=== PATIENT | male | born 1985 | race Caucasian/White ===

== ENCOUNTER 2020-02-12 21:20 | Observation (INO) | payer MEDICARE, MEDICAID, SELFPAY ==
[2020-02-12 21:21] VITALS: BP 118/75; PULSE 54; RESP 18; TEMP 36.4; O2SAT 98; BMI 21.2
[2020-02-12 21:32] VITALS: BP 150/94; PULSE 51; RESP 12; O2SAT 99
--- NOTE | 2020-02-12 21:37 | PC.NURSE ---
patient ambulated to bathroom with clean catch packaging and clean catch education provided to patient.
--- NOTE | 2020-02-12 21:47 | ED_ITS ---
Documented by User: BISI Joshi 02/13/20 00:09 HPI - Abdominal Pain General: Chief Complaint: Abdominal Pain Stated Complaint: abd pain Time Seen by Provider: 02/12/20 21:32 History of Present Illness: HPI narrative: Patient is a 34-year-old male comes to the ED with abdominal pain. Patient says this morning he woke up with right upper quadrant abdominal pain that radiates to the middle of his back. Patient says he is never had this kind of pain before. He currently rates pain a 5 out of 10. Patient says he was unable to keep any food or liquids down today and he vomited multiple times. Patient did say last night for dinner patient had some fried foods and brats. He had no pain or discomfort during the night. Associated Symptoms: Reports nausea and vomiting; Denies chills, constipation, diarrhea, dysuria, fever(s), hematochezia and hematuria Review of Systems Const: Denies: fever(s), chills or fatigue Eyes: Denies: change in vision or eye discomfort ENMT: Denies: throat pain, odynophagia, nasal discharge or nasal congestion Card: Denies: chest pain, palpitations, edema, swelling of feet/ankles, dyspnea on exertion or orthopnea Resp: Denies: dyspnea, productive cough or non-productive cough GI: Reports: abdominal pain (RUQ with radiation to middle of back), nausea and vomiting; Denies: diarrhea, constipation or hematochezia : Denies: flank pain, difficulty urinating, dysuria or hematuria Musc: Denies: neck pain, back pain or extremity swelling Skin/Breast: Denies: rash or new lesions Neuro: Denies: headache(s), numbness in extremities or weakness in extremities PFS ED PFSH: Social History Smoking and tobacco status: current every day smoker Physical Exam Const: COMMON NORMALS: patient oriented x3 and alert GENERAL APPEARANCE: cooperative; not comfortable (Patient appears uncomfortable and in some pain.) HENMT: COMMON NORMALS: normocephalic HEAD & SCALP: normocephalic MOUTH: Normal oral and palatal mucosa present THROAT: posterior oropharynx normal and uvula midline Eye: COMMON NORMALS: Equal, round and reactive pupils present PUPIL: Yes Equal, round and reactive pupils present Neck/C-Spine: COMMON NORMALS: supple GENERAL: Yes normal visual inspection Resp: COMMON NORMALS: normal respiratory effort, No retractions, No use of accessory muscles and clear to auscultation bilaterally AUSCULTATION: clear to auscultation bilaterally Cardio: COMMON NORMALS: regular rate, regular rhythm, S1 normal heart sound present, S2 normal heart sound present, No gallops present (Cardio), No clicks present (Cardio), No murmurs present (Cardio) and Peripheral pulses 2+ throughout RATE: regular rate RHYTHM: regular rhythm HEART SOUNDS: S1 normal heart sound present and S2 normal heart sound present PERIPHERAL PULSES: Peripheral pulses 2+ throughout GI: COMMON NORMALS: Normal to inspection, nondistended, normoactive bowel sounds present, Soft to palpation and no masses PALPATION: Yes Soft to palpation and Yes Tenderness to palpation present (GI) Details: RUQ (moderate tenderness with Positive staton's sign) : COMMON NORMALS: Yes no CVA tenderness BLADDER/KIDNEY EXAM: Yes no CVA tenderness Back/Pelvis: COMMON NORMALS: no CVA tenderness Extremity: COMMON NORMALS: normal to inspection and no pedal edema Neuro: COMMON NORMALS: patient oriented x3 SENSORIUM/ORIENTATION: Yes alert GAIT: Yes Normal gait present Skin: COMMON NORMALS: no rashes or lesions noted GENERAL SKIN EXAM: no rashes or lesions noted and dry skin Course Vital Signs: Vital signs: Vital Signs Temperature 98.2 F 02/13/20 01:39 Pulse Rate 50 L 02/13/20 01:39 Respiratory Rate 17 02/13/20 01:39 Blood Pressure 149/82 02/13/20 01:39 Pulse Oximetry 98 02/13/20 01:39 MDM - Abdominal Pain MDM Narrative: Medical decision making narrative: Patient is a 34-year-old male comes to the ED with right upper quadrant pain that radiates to his back. Positive Staton sign upon physical exam. Patient's white blood cell count is 11.2, ultrasound of gallbladder showed impaction of gallstone in gallbladder neck, gallbladder wall thickening. I discussed patient's case with Dr. Hendricks and he will be taking over patient's care to speak with general surgeon and to get patient admitted. Lab Data: Attestation: I reviewed the patient's lab results. Labs: Lab Results 02/12/20 02/12/20 02/12/20 Range/Units 21:40 21:45 21:45 WBC 11.2 H (4.0-10.0) 10^3/ uL RBC 4.68 (4.1-5.3) 10^6/u L Hgb 14.6 (11.7-16.6) g/dL Hct 44.1 (42.0-52.0) % MCV 94.2 H (80-94) fL MCH 31.2 (28.0-34.0) pg MCHC 33.1 (30.0-36.0) g/dL RDW 12.9 (12.1-15.1) % Plt Count 287 (130-400) 10^3/c mm MPV 9.5 (7.4-10.4) fL Neut % (Auto) 73.8 % Lymph % (Auto) 17.5 % [place] % (Auto) 7.7 % Eos % (Auto) 0.2 % Baso % (Auto) 0.4 % Neut # (Auto) 8.2 H (1.8-7.7) 10^3/u L Lymph # (Auto) 2.0 (0.8-4.8) 10^3/u L [place] # (Auto) 0.9 (0.2-0.9) 10^3/u L Eos # (Auto) 0.0 (0.0-0.8) 10^3/u L Baso # (Auto) 0.1 (0.0-0.1) 10^3/u L Nucleated RBC % (a uto) 0 % Nucleated RBCs # 0.0 /100WBC Sodium 140 (136-145) mmol/L Potassium 4.1 (3.5-5.1) mmol/L Chloride 103 (98-107) mmol/L Carbon Dioxide 25 (22-29) mmol/L Anion Gap 16.1 (5-19) BUN 9 (6-20) mg/dL Creatinine 0.6 L (0.7-1.2) mg/dL GFR Calculation 152.4 H (90-130) mL/min Glucose 149 H (65-115) mg/dL Calculated Osmolal ity 289 (285-295) mOsm/k g Calcium 9.6 (8.5-10.5) mg/dL Total Bilirubin 0.3 (0.15-1.2) mg/dL AST 23 (0-40) U/L ALT 17 (0-41) U/L Alkaline Phosphata se 103 (40-130) IU/L Total Protein 7.5 (6.6-8.7) g/dL Albumin 4.5 (3.5-5.2) g/dL Globulin 3.0 (1.3-4.6) g/dL Lipase 29 (13-60) U/L Urine Color Dark yellow (Yellow) Urine Appearance Clear (CLEAR) Urine pH 6 (5-7) Ur Specific Gravit y 1.025 (1.005-1.030) Urine Protein Neg (Negative) Urine Glucose (UA) Norm (Normal) Urine Ketones 1+ H (Negative) Urine Blood Neg (Negative) Urine Nitrate Negative (Negative) Urine Bilirubin Neg (NEGATIVE) Urine Urobilinogen 1 H (Negative) mg/dL Ur Leukocyte Amanda ase Negative (Negative) Imaging Data ^: US: Attestation: I personally reviewed and interpreted this imaging study as follows: Radiologist's impression: [address] [address] Ultrasound Report Signed Patient: Rell Milian Unit #: [id number] : 1985 Age/Sex: 34 / M ADM Date: 01/24 05/15 Loc: ER Room/Bed: Attending Dr: Ordering Provider/Ordering MD: Kwesi Pillai Date of Service: 02/12/20 Procedure(s): US gall bladder [id number] Accession Number(s): [id number] Report Number: [id number] PROCEDURE INFORMATION: Exam: US Abdomen Limited, Right Upper Quadrant Exam date and time: 02/12/2020 11:07 PM Age: 34 years old Clinical indication: Abdominal pain; Acute; Additional info: Ruq pain, n/v TECHNIQUE: Imaging protocol: Real-time ultrasound of the abdomen with image documentation. Examination was focused on the right upper quadrant. COMPARISON: No relevant prior studies available. FINDINGS: Liver: Slightly increased fat in the fissure for the ligamentum teres in the left lobe of the liver. No liver mass. Normal blood flow in the main portal vein. Gallbladder: Shadowing stone in the gallbladder neck measuring about 9.3 x 15.5 mm. Prominent thickening of the gallbladder wall around the gallstone. Thickness of the anterior wall of the midportion of the gallbladder 3.6 mm. Positive sonographic Staton's sign. Common bile duct: CBD 4.9 mm. Pancreas: Normal size and echogenicity of the pancreatic neck and adjacent head and body and no ductal dilatation in these areas. Obscuration of the rest of the pancreas by bowel. Right kidney: Right kidney approximately 10.8 cm long (my measurement) by 5.4 x 6.2 cm with no hydronephrosis or apparent mass or shadowing stone. Aorta: Mid abdominal aorta 1.5 cm deep. Intraperitoneal space: No free fluid around the gallbladder or in Morison's pouch. US/ gall bladder [id number] IMPRESSION: 1. Concern for impaction of the gallstone in the gallbladder neck, especially considering the gallbladder wall thickening and the positive sonographic Staton's sign. No biliary ductal dilatation. 2. No apparent disease of the other visualized structures. Dictated By: Jacklyn Jimenez MD Signed By: Jacklyn Jimenez MD Signed Date/Time: 02/12/202332 DD/ 31 Discharge Plan Discharge Patient Disposition: Placed in Observation Admit Provider: Ben Benavidez Clinical Impression: Acute cholecystitis Condition: Stable Referrals: Kusum Palafox, [employer] [Primary Care Provider] - Discharge Date/Time: 02/13/20 01:25 Sign Out Sign Out Data: Patient Sign Out occurred on 02/13/20 at 00:13. Patient's care was discussed, and care was transferred from to Kandy Hendricks. Coding Level of Care Code ED Measurer for Chg Fwd Exam Comprehensive Documented by User: Kandy Hendricks 02/13/20 02:51 HPI - Abdominal Pain General: Chief Complaint: Abdominal Pain Stated Complaint: abd pain Time Seen by Provider: 02/12/20 21:32 PFSH ED PFSH: Social History Smoking and tobacco status: current every day smoker Course Vital Signs: Vital signs: Vital Signs Temperature 98.2 F 02/13/20 01:39 Pulse Rate 50 L 02/13/20 01:39 Respiratory Rate 17 02/13/20 01:39 Blood Pressure 149/82 02/13/20 01:39 Pulse Oximetry 98 02/13/20 01:39 MDM - Abdominal Pain MDM Narrative: Medical decision making narrative: Case inherited by me from BISI Joshi. I approve of his assessment and treatment plan. The patient has intractable pain going on all day with a positive ultrasound. His white count is slightly elevated with subjective fevers. Believe this is enough for cholecystitis. I have reviewed the case in full with Dr. Benavidez who is agreeable to admission for IV antibiotics, pain medication and fluids and he will make a determination on surgery versus released outpatient with follow-up. Lab Data: Labs: Lab Results 02/12/20 02/12/20 02/12/20 Range/Units 21:40 21:45 21:45 WBC 11.2 H (4.0-10.0) 10^3/ uL RBC 4.68 (4.1-5.3) 10^6/u L Hgb 14.6 (11.7-16.6) g/dL Hct 44.1 (42.0-52.0) % MCV 94.2 H (80-94) fL MCH 31.2 (28.0-34.0) pg MCHC 33.1 (30.0-36.0) g/dL RDW 12.9 (12.1-15.1) % Plt Count 287 (130-400) 10^3/c mm MPV 9.5 (7.4-10.4) fL Neut % (Auto) 73.8 % Lymph % (Auto) 17.5 % [place] % (Auto) 7.7 % Eos % (Auto) 0.2 % Baso % (Auto) 0.4 % Neut # (Auto) 8.2 H (1.8-7.7) 10^3/u L Lymph # (Auto) 2.0 (0.8-4.8) 10^3/u L [place] # (Auto) 0.9 (0.2-0.9) 10^3/u L Eos # (Auto) 0.0 (0.0-0.8) 10^3/u L Baso # (Auto) 0.1 (0.0-0.1) 10^3/u L Nucleated RBC % (a uto) 0 % Nucleated RBCs # 0.0 /100WBC Sodium 140 (136-145) mmol/L Potassium 4.1 (3.5-5.1) mmol/L Chloride 103 (98-107) mmol/L Carbon Dioxide 25 (22-29) mmol/L Anion Gap 16.1 (5-19) BUN 9 (6-20) mg/dL Creatinine 0.6 L (0.7-1.2) mg/dL GFR Calculation 152.4 H (90-130) mL/min Glucose 149 H (65-115) mg/dL Calculated Osmolal ity 289 (285-295) mOsm/k g Calcium 9.6 (8.5-10.5) mg/dL Total Bilirubin 0.3 (0.15-1.2) mg/dL AST 23 (0-40) U/L ALT 17 (0-41) U/L Alkaline Phosphata se 103 (40-130) IU/L Total Protein 7.5 (6.6-8.7) g/dL Albumin 4.5 (3.5-5.2) g/dL Globulin 3.0 (1.3-4.6) g/dL Lipase 29 (13-60) U/L Urine Color Dark yellow (Yellow) Urine Appearance Clear (CLEAR) Urine pH 6 (5-7) Ur Specific Gravit y 1.025 (1.005-1.030) Urine Protein Neg (Negative) Urine Glucose (UA) Norm (Normal) Urine Ketones 1+ H (Negative) Urine Blood Neg (Negative) Urine Nitrate Negative (Negative) Urine Bilirubin Neg (NEGATIVE) Urine Urobilinogen 1 H (Negative) mg/dL Ur Leukocyte Amanda ase Negative (Negative) Discharge Plan Discharge Patient Disposition: Placed in Observation Admit Provider: Ben Benavidez Clinical Impression: Acute cholecystitis Condition: Stable Referrals: Kusum Palafox, [employer] [Primary Care Provider] - Discharge Date/Time: 02/13/20 01:25 Sign Out Sign Out Data: Patient Sign Out occurred on 02/13/20 at 00:13. Patient's care was discussed, and care was transferred from to Kandy Hendricks. Coding Level of Care Code ED Measurer for Larisa Fwd Exam Comprehensive
[2020-02-12] MEDS: sodium chloride 0.9% 1,000 ML 999 ML IV (21:51)
[2020-02-12 21:58] LABS: Basophils # 0.1 10^3/uL (0.0-0.1); Basophils % 0.4 %; Eosinophils % 0.2 %; Hematocrit 44.1 % (42.0-52.0); Hemoglobin 14.6 g/dL (11.7-16.6); Lymphocytes % 17.5 %; Mean Corpuscular HGB Conc 33.1 g/dL (30.0-36.0); Mean Corpuscular Hemoglobin 31.2 pg (28.0-34.0); Mean Corpuscular Volume 94.2 fL (80-94); Mean Platelet Volume 9.5 fL (7.4-10.4); Monocytes # 0.9 10^3/uL (0.2-0.9); Monocytes % 7.7 %; Neutrophils # 8.2 10^3/uL (1.8-7.7); Neutrophils % 73.8 %; Nucleated Red Blood Cells % 0 %; Platelet Count 287 10^3/cmm (130-400); Red Blood Count 4.68 10^6/uL (4.1-5.3); Red Cell Distribution Width 12.9 % (12.1-15.1); White Blood Count 11.2 10^3/uL (4.0-10.0)
[2020-02-12 22:03] LABS: Add Urine Microscopic? NO
[2020-02-12 22:06] LABS: Bilirubin Urine Neg (NEGATIVE); Blood Urine Neg (Negative); Glucose Urine UA Norm (Normal); Ketones Urine 1+ (Negative); Leukocyte Esterase Urine Negative (Negative); Nitrate Urine Negative (Negative); Protein Urine Neg (Negative); Specific Gravity, Urine 1.025 (1.005-1.030); Urine Appearance Clear (CLEAR); Urine Color Dark Yellow (Yellow); Urobilinogen Urine 1 mg/dL (Negative); pH Urine 6 (5-7)
[2020-02-12 22:18] LABS: Alanine Aminotransferase 17 U/L (0-41); Albumin Level 4.5 g/dL (3.5-5.2); Alkaline Phosphatase 103 IU/L (40-130); Anion Gap 16.1 (5-19); Aspartate Amino Transferase 23 U/L (0-40); Blood Urea Nitrogen 9 mg/dL (6-20); Calcium 9.6 mg/dL (8.5-10.5); Carbon Dioxide 25 mmol/L (22-29); Chloride 103 mmol/L (98-107); Glomerular Filtration Rate 152.4 mL/min (90-130); Glucose 149 mg/dL (65-115); Lipase 29 U/L (13-60); Osmolality Calculated 289 mOsm/kg (285-295); Potassium 4.1 mmol/L (3.5-5.1); Sodium 140 mmol/L (136-145); Total Bilirubin 0.3 mg/dL (0.15-1.2); Total Protein 7.5 g/dL (6.6-8.7)
--- NOTE | 2020-02-12 22:18 | USR_ITS ---
PROCEDURE INFORMATION: Exam: US Abdomen Limited, Right Upper Quadrant Exam date and time: 02/12/2020 11:07 PM Age: 34 years old Clinical indication: Abdominal pain; Acute; Additional info: Ruq pain, n/v TECHNIQUE: Imaging protocol: Real-time ultrasound of the abdomen with image documentation. Examination was focused on the right upper quadrant. COMPARISON: No relevant prior studies available. FINDINGS: Liver: Slightly increased fat in the fissure for the ligamentum teres in the left lobe of the liver. No liver mass. Normal blood flow in the main portal vein. Gallbladder: Shadowing stone in the gallbladder neck measuring about 9.3 x 15.5 mm. Prominent thickening of the gallbladder wall around the gallstone. Thickness of the anterior wall of the midportion of the gallbladder 3.6 mm. Positive sonographic Staton's sign. Common bile duct: CBD 4.9 mm. Pancreas: Normal size and echogenicity of the pancreatic neck and adjacent head and body and no ductal dilatation in these areas. Obscuration of the rest of the pancreas by bowel. Right kidney: Right kidney approximately 10.8 cm long (my measurement) by 5.4 x 6.2 cm with no hydronephrosis or apparent mass or shadowing stone. Aorta: Mid abdominal aorta 1.5 cm deep. Intraperitoneal space: No free fluid around the gallbladder or in Morison's pouch. US/US gall bladder [id number] IMPRESSION: 1. Concern for impaction of the gallstone in the gallbladder neck, especially considering the gallbladder wall thickening and the positive sonographic Staton's sign. No biliary ductal dilatation. 2. No apparent disease of the other visualized structures.
[2020-02-12] MEDS: ondansetron 2 mg/ML SDV 2 mL 4 MG IVP (22:24)
[2020-02-12 22:25] VITALS: RESP 15; O2SAT 99
[2020-02-12] MEDS: morphine 4 mg/mL SDV 1 mL 2 MG IVP (22:25)
[2020-02-12 22:28] VITALS: BP 153/95; PULSE 61; RESP 14; O2SAT 99
[2020-02-12 23:03] VITALS: BP 145/86; PULSE 55; RESP 14; O2SAT 98
--- NOTE | 2020-02-12 23:04 | PC.NURSE ---
ultrasound in room
[2020-02-13] VITALS (19 sets, daily range): BP systolic 122–167; BP diastolic 61–103; PULSE 48–85; RESP 14–22; TEMP 36.4–37; O2SAT 95–100
[2020-02-13] MEDS: piperacillin-tazobactam 3.375 GM in sodium chloride 0.9% (plus) 50 ML IV ×4 (00:42→23:49)
[2020-02-13] MEDS: dextrose 5%-sod chloride 0.45% 1,000 ML 100 ML IV (01:12)
[2020-02-13] MEDS: morphine 4 mg/mL SDV 1 mL IVP ×2 (03:02→06:52)
[2020-02-13 05:08] LABS: Basophils % 0.3 %; Eosinophils % 0.2 %; Hematocrit 43.2 % (42.0-52.0); Hemoglobin 14.1 g/dL (11.7-16.6); Lymphocytes # 2.3 10^3/uL (0.8-4.8); Lymphocytes % 17.8 %; Mean Corpuscular HGB Conc 32.6 g/dL (30.0-36.0); Mean Corpuscular Hemoglobin 31.1 pg (28.0-34.0); Mean Corpuscular Volume 95.4 fL (80-94); Mean Platelet Volume 10.2 fL (7.4-10.4); Monocytes # 1.1 10^3/uL (0.2-0.9); Monocytes % 8.1 %; Neutrophils # 9.6 10^3/uL (1.8-7.7); Neutrophils % 73.1 %; Nucleated Red Blood Cells % 0 %; Platelet Count 251 10^3/cmm (130-400); Red Blood Count 4.53 10^6/uL (4.1-5.3); White Blood Count 13.2 10^3/uL (4.0-10.0)
[2020-02-13 05:25] LABS: Partial Thromboplastin Time 31.1 SECONDS (23.9-36.7)
[2020-02-13 05:35] LABS: Alanine Aminotransferase 16 U/L (0-41); Albumin Level 4.3 g/dL (3.5-5.2); Alkaline Phosphatase 90 IU/L (40-130); Anion Gap 15.9 (5-19); Aspartate Amino Transferase 20 U/L (0-40); Blood Urea Nitrogen 9 mg/dL (6-20); Calcium 9.2 mg/dL (8.5-10.5); Carbon Dioxide 23 mmol/L (22-29); Chloride 105 mmol/L (98-107); Creatinine Clr Calc Pharmacy 137.1009; Glomerular Filtration Rate 127.6 mL/min (90-130); Glucose 130 mg/dL (65-115); Osmolality Calculated 288 mOsm/kg (285-295); Potassium 3.9 mmol/L (3.5-5.1); Sodium 140 mmol/L (136-145); Total Bilirubin 0.4 mg/dL (0.15-1.2); Total Protein 6.3 g/dL (6.6-8.7)
--- NOTE | 2020-02-13 05:58 | P.HP_ITS ---
Providers/Chief Complaint Admitting Physician: Ben Benavidez MD Primary Care Provider: KIRA Solano Chief Complaint: abd pain History of Present Illness Chief Complaint: Am hurting History of present illness: Mr. Rell Milian is a pleasant 34 year old male presents with worsening abdominal pain located mostly at the right upper quad and referred to the back patient started to have this pain yesterday evening and as it got worse presented to the emergency department for further work-up, nothing seems to make it better or worse and he denies history of fatty dysp epsia or jaundice or fevers or chills. Patient was further work-up and was found to have acute calculus cholecystitis FINDINGS: Liver: Slightly increased fat in the fissure for the ligamentum teres in the left lobe of the liver. No liver mass. Normal blood flow in the main portal vein. Gallbladder: Shadowing stone in the gallbladder neck measuring about 9.3 x 15.5 mm. Prominent thickening of the gallbladder wall around the gallstone. Thickness of the anterior wall of the midportion of the gallbladder 3.6 mm. Positive sonographic Staton's sign. Common bile duct: CBD 4.9 mm. Pancreas: Normal size and echogenicity of the pancreatic neck and adjacent head and body and no ductal dilatation in these areas. Obscuration of the rest of the pancreas by bowel. Right kidney: Right kidney approximately 10.8 cm long (my measurement) by 5.4 x 6.2 cm with no hydronephrosis or apparent mass or shadowing stone. Aorta: Mid abdominal aorta 1.5 cm deep. Intraperitoneal space: No free fluid around the gallbladder or in Morison's pouch. US/US gall bladder [id number] IMPRESSION: 1. Concern for impaction of the gallstone in the gallbladder neck, especially considering the gallbladder wall thickening and the positive sonographic Staton's sign. No biliary ductal dilatation. 2. No apparent disease of the other visualized structures. General surgery was consulted for further evaluation potential management Review of Systems 2 General: Reports: 10 or more systems reviewed and unremarkable except in HPI and below Medications/Allergies Home Medications Medication Instructions Recorded Confirmed Last Taken Type No Known Home Medications 02/12/20 02/12/20 Unknown History Allergies Allergy/AdvReac Type Severity Reaction Status Date / Time No Known Allergies Allergy Verified 02/13/20 08:14 PFSH Acute PFSH: Social History Smoking and tobacco status: current every day smoker Vitals/I&O/Wt Last Vital Signs Temp 97.5 F L 02/13/20 04:00 Pulse 73 02/13/20 04:00 Resp 20 H 02/13/20 04:00 BP 122/68 02/13/20 04:00 Pulse Ox 97 02/13/20 04:00 02/12/20 02/12/20 02/13/20 14:59 22:59 06:59 Intake Total 1050 / 1050 Balance 1050 / 1050 Weight last 48 hrs Weight 140 lb Physical Exam Narrative: EXAM NARRATIVE: Patient is conscious alert oriented X3 BMI 21 Head and neck examination PERRLA no masses no cervical lymphadenopathy no jaundice Cardiac examination audible S1-S2 no murmurs no gallops no arrhythmias Chest is clear bilateral,abscence of Rhonchi or wheezes,no surgical emphysema Abdomen nontender except at the right upper quadrant nondistended soft no organomegaly guarding or rigidity/no signs of peritonitis Extremities no cyanosis no clubbing no edema Data : 02/13/20 02:54 02/13/20 02:54 A&P Assessment and plan (1) Acute cholecystitis: Plan of care; After thorough history physical examination and reviewing the chart ,I counseled the patient for laparoscopic cholecystectomy possible open, indications risks including but not limited injury to the common bile duct and other visc era.benefits and alternatives all discussed with the patient, and she did agree to proceed. All questions have been answered and all concerns have been addressed to patient's satisfaction. Rationale was carefully and clearly discussed with the patient.Appropriate informed consent have been reviewed and signed. IV antibiotics in the form of Zosyn 3.375 mg every 8 hours Pain control IV fluid resuscitation Status: Acute Attestations Medical Necessity Statement*: Observation status Time Spent in Patient Care: (>than 50% of time spent in counselling and/or direct pt care on unit) . Coding Level of Care Code Acute Robotics Technician for [facility] Fwkarthikeyan Diagnoses Acute cholecystitis K81.0
--- NOTE | 2020-02-13 06:25 | PC.NURSE ---
Shift Summary pt transferred self from ER stretcher to bed with no problems. pt c/o pain about 0200, relieved with IV pain meds. pt nervous about possible surgery. pt spoke with general surgeon this AM for surgery. pt wiped with chlorahexidine wipes at 0620 and changed into clean hospital gown. pt has been NPO. pt has removed all jewelry with the exception of nose stud which pt states he cannot remove. nose stud was taped down.
[2020-02-13] MEDS: lactated ringers 1,000 ML 125 ML IV (10:01)
--- NOTE | 2020-02-13 11:28 | PC.CHAP ---
Pastoral Care Encounter/Spiritual Assessment Type of Contact [] Declined real estate marketing coordinator visit [] Patient/Family/Request visit [] Outpatient visit [] Follow-up visit [] Physician referral [] Code/Alert [X] Routine visit [] Staff referral [] Actively dying [] Patient sleeping [] Family support [] [] Out of room [] Palliative care [] [] Receiving care in room [] Pre-surgical visit [] Trauma [] Long length of stay [] ICU visit [] Other: Relational/Emotional Strength [] Patient feels connected with others/family/visitors/staff [] Distress [] Loneliness/isolation [] Abandonment Spirituality of Patient [] Person of [place] [] Attends Caodaism of their [place] [] Believes in Prayer [] Reads Bible or Christian materials [] There are Spiritual issues to be addressed Stem Cleaning Machine Feeder Interventions [X] Prayer [] Active listening [X] Non-anxious presence [] Spiritual/emotional support [] Crisis/trauma care [] Spiritual counseling [] Bereavement support [] Provided bereavement packet [] Provided Bible/devotional materials [] Provided toy/stuffed animal, coloring book to patient or family member [] Provided Communion [] Anointing/[place] [] Salvation [X] Completed spiritual assessment [] Other: Impact on Illness or Injury [] Angry [] Fearful [] Anxious [] Often cries [] Exhaustion [] Unable to work [] Unable to attend mosque [] Unable to walk/stand [] Unable to read [] Unable to drive [] Unable to eat/drink [] Unable to sleep [] Unable to be with family [] Patient intubated [] Other: Summary: Pt has appendectomy around noon today. He lives with his father; uses Medicaid transport. Time spent with patient: 5 - 8 mins
[2020-02-13] MEDS: sodium chloride 0.9% 1,000 ML 30 ML IV (14:00)
--- NOTE | 2020-02-13 14:20 | ANES.PREANE2 ---
Pre-Anesthetic Assessment Pre-Anesthetic Assessment: Height/Weight: Height 1.73 m Weight 63.503 kg Temp Pulse Resp BP Pulse Ox 98.6 F 52 L 18 134/89 96 02/13/20 13:45 02/13/20 13:45 02/13/20 13:45 02/13/20 13:45 02/13/20 13:45 Preop Diagnosis: Acute calculus cholecystitis Proposed Procedure: Operation Date: 02/13/20 16:20 Proposed Procedures p Laparoscopic Cholecystectomy possible open(Not Applicable) - Ben Benavidez MD Last intake: Intake Last Liquid Date 02/12/20 Last Liquid Time 12:00 Last Solid Date 02/12/20 Last Solid Time 12:00 Social: Social History: Alcohol (occ) and Tobacco Exam: Pre-Anes Outpt Exam: alert, oriented x 3, clear to auscultation bilaterally and regular rate & rhythm Airway: Submandibular: WNL Cervical ROM: WNL MP: 2 Dentition: Other (teeth ok) History/ROS: No significant history except as noted Pulmonary: Pulmonary: None reported CV/HEM: CV/HEM: None reported : : None reported Hepatic: Hepatic: None reported GI: GI: GERD and None reported Metabolic: Metabolic: None reported Musc/skel: Musc/skel: None reported Neuropsych: Neuropsych: None reported Anesthetic Plan: ASA status: 2 Anesthesia: Anesthesia Evaluation and General Risk of > 500 ml blood loss (7ml/kg in children): No Meds/Allergies Current Medications: Current Medications Generic Name Dose Route Start Last Admin Trade Name Freq PRN Reason Stop Dose Admin Piperacillin Sod/T azobactam 50 mls @ 12.5 mls /hr 02/13/20 00:30 02/13/20 09:51 Sod 3.375 gm/ So dium Chloride IV 12.5 mls/hr Q8H MARION Administration Protocol Lactated Ringer's 1,000 mls @ 125 m ls/hr 02/13/20 08:15 02/13/20 10:01 Lactated Ringers IV 125 mls/hr .Q8H MARION Administration Sodium Chloride 1,000 mls @ 30 ml s/hr 02/13/20 13:30 02/13/20 14:00 Sodium Chloride 0.9% IV 02/14/20 13:29 30 mls/hr .Q24H MARION Administration Morphine Sulfate 4 mg 02/13/20 00:16 02/13/20 06:52 Morphine IVP 4 mg Q4H PRN Administration SEVERE PAIN PFSH Anesthesia PFSH: Social History Smoking and tobacco status: current every day smoker Data Anesthesia CBC & Chem 7: 02/13/20 02:54 02/13/20 02:54 Other Labs: Laboratory Results - last 48 hr 02/12/20 02/12/20 02/12/20 21:40 21:45 21:45 WBC 11.2 H RBC 4.68 Hgb 14.6 Hct 44.1 MCV 94.2 H MCH 31.2 MCHC 33.1 RDW 12.9 Plt Count 287 MPV 9.5 Neut % (Auto) 73.8 Lymph % (Auto) 17.5 [place] % (Auto) 7.7 Eos % (Auto) 0.2 Baso % (Auto) 0.4 Neut # (Auto) 8.2 H Lymph # (Auto) 2.0 [place] # (Auto) 0.9 Eos # (Auto) 0.0 Baso # (Auto) 0.1 Nucleated RBC % (auto) 0 Nucleated RBCs # 0.0 APTT Sodium 140 Potassium 4.1 Chloride 103 Carbon Dioxide 25 Anion Gap 16.1 BUN 9 Creatinine 0.6 L GFR Calculation 152.4 H Glucose 149 H Calculated Osmolality 289 Calcium 9.6 Total Bilirubin 0.3 AST 23 ALT 17 Alkaline Phosphatase 103 Total Protein 7.5 Albumin 4.5 Globulin 3.0 Lipase 29 Urine Color Dark yellow Urine Appearance Clear Urine pH 6 Ur Specific [place] 1.025 Urine Protein Neg Urine Glucose (UA) Norm Urine Ketones 1+ H Urine Blood Neg Urine Nitrate Negative Urine Bilirubin Neg Urine Urobilinogen 1 H Ur Leukocyte Esterase Negative 02/13/20 02/13/20 02/13/20 02:54 02:54 02:54 WBC 13.2 H RBC 4.53 Hgb 14.1 Hct 43.2 MCV 95.4 H MCH 31.1 MCHC 32.6 RDW 13.0 Plt Count 251 MPV 10.2 Neut % (Auto) 73.1 Lymph % (Auto) 17.8 [place] % (Auto) 8.1 Eos % (Auto) 0.2 Baso % (Auto) 0.3 Neut # (Auto) 9.6 H Lymph # (Auto) 2.3 [place] # (Auto) 1.1 H Eos # (Auto) 0.0 Baso # (Auto) 0.0 Nucleated RBC % (auto) 0 Nucleated RBCs # 0.0 APTT 31.1 Sodium 140 Potassium 3.9 Chloride 105 Carbon Dioxide 23 Anion Gap 15.9 BUN 9 Creatinine 0.7 GFR Calculation 127.6 Glucose 130 H Calculated Osmolality 288 Calcium 9.2 Total Bilirubin 0.4 AST 20 ALT 16 Alkaline Phosphatase 90 Total Protein 6.3 L Albumin 4.3 Globulin 2.0 Lipase Urine Color Urine Appearance Urine pH Ur Specific [place] Urine Protein Urine Glucose (UA) Urine Ketones Urine Blood Urine Nitrate Urine Bilirubin Urine Urobilinogen Ur Leukocyte Esterase Cardiac Studies: No Data to Display
--- NOTE | 2020-02-13 14:21 | SUR.PREOP ---
PT TO OPS PER CART PT UP TO BR VOICED, PT DENIES PAIN SIDE RAILS UP X 2 CALL LIGHT WITHIN REACH
[2020-02-13] MEDS: lidocaine 2% INJ 20 mL INJECTION (16:03)
--- NOTE | 2020-02-13 16:19 | P.OP_ITS ---
Operative Report Date of procedure: February 13, 2020 Pre-op Diagnosis: Acute calculus cholecystitis Post-op diagnosis: same Post-op Findings: Markedly distended gallbladder showing white bile aspirated 40 mL Acute calculus cholecystitis Procedure Done: Laparoscopic cholecystectomy Specimens removed/disposition: Gallbladder and contents Surgeon: Ben Benavidez [place]erry[place] Deckhand: Surgical evie Smith and Mell Circulating nurse Kalee Anesthesia: General (electrophysiology nurse practitioner Smart) Estimated blood loss (mL): 15 Complications: No immediate complication Condition: stable Disposition: observation Brief History: Mr. Rell Milian is a pleasant 34 year old male presents with worsening abdominal pain located mostly at the right upper quad and referred to the back patient started to have this pain yesterday evening and as it got worse presented to the emergency department for further work-up, nothing seems to make it better or worse and he denies history of fatty dyspepsia or jaundice or fevers or chills. Patient was further work-up and was found to have acute calculus cholecystitis Ultrasound finding: IMPRESSION: 1. Concern for impaction of the gallstone in the gallbladder neck, especially considering the gallbladder wall thickening and the positive sonographic Staton's sign. No biliary ductal dilatation. 2. No apparent disease of the other visualized structures. General surgery was consulted for further evaluation potential management Plan of care; After thorough history physical examination and reviewing the chart ,I counseled the patient for laparoscopic cholecystectomy possible open, indications risks including but not limited injury to the common bile duct and other viscera.michelle efits and alternatives all discussed with the patient, and she did agree to proceed. All questions have been answered and all concerns have been addressed to patient's satisfaction. Rationale was carefully and clearly discussed with the patient.Appropriate informed consent have been reviewed and signed. Procedure: Patient was identified in the holding area and taken back to the operative suite, placed in supine position intubated by anesthesia . Time-out was done verifying the patient's name/date of /planned procedure and destination after the procedure, all were in agreement. SCDs confirmed to be functioning, preoperative antibiotics administered per protocol, and beta fiona protocol was confirmed. Patient was appropriately secured to the table, footboard was applied to the OR table, before prep and drape anesthesia was asked to tilt the table back and forth to make sure that the patient is appropriately secured and she was. Prep and drape of the abdomen was done under the usual sterile technique, followed by that supraumbilical skin incision,skin incision was done by a 15 blade knife, and stay sutures were applied to the fascia and Sumner trocar technique was used to enter the abdominal without injuring any abdominal viscera, started by low flow gas insufflation followed by a high flow, started with a 10 mm laparoscope and under direct vision there was no evidence of any injuries, the scope then switched to a 30? ,10 millimeter scope and under direct visualization 5 millimeter trocar was inserted in the epigastric region followed by two 5 mm trocars were inserted in the right upper quadrant that was done after injection of local lidocaine 2% at all incision sites. Gallbladder showed acute calculus cholecystitis with extensive edema &with adhesions, gallbladder was markedly distended Patient was then positioned in the head up and tilted to the left, at that point I decided to aspirate the gallbladder to allow better grabbing and a 40 mL of light green bile were aspirated. Ratcheted forceps were introduced into the lateral most 5mm port and was applied unto the fundus of the gallbladder cephalad and using Bullet forceps the infundibulum of the gallbladder was retracted laterally. Using [place] forceps then L-hook cautery to dissect the peritoneum overlying the Calot's triangle which was then opened medially and laterally until the cystic duct and the cystic artery were skeletonized. Dissection was carried along the body of the gallbladder and after ensuring critical view of safety was identfied. Cystic duct and cystic artery where seen connected to the gallbladder. Clips were applied on the cystic duct towards the common bile duct 1 towards the gallbladder then divided is in sharp scissors, 2 clips were then applied onto the cystic artery and 1 towards the gallbladder and divided by sharp scissors. Additional traversing vessels were clipped Dissection was then carried along of the gallbladder from the gallbladder fossa using cautery as well as sharp dissection with heat energy. The gallbladder then was dissected out from the gallbladder fossa totally , cholecystectomy was then achieved and was placed in an Endo Catch bag and then retrieved from the Sumner trocar site under direct visualization using a 5 mm 30? scope through the epigastric trocar, specimen was then passed to the circulating nurse to go for permanent pathology,irrigation and hemostasis was done to the gallbladder fossa after hemostasis was secured, final survey laparoscopy was done that showed no injuries. Suction irrigation was obtained The supraumbilical fascial defect was then closed using interrupted Vicryl sutures using a fascial closure device ;Chris Davis under direct visua lization Gas was allowed to deflate,Trocars were then taken out under direct vision there was no evidence of bleeding Specimen was passed to the circulating nurse for permanent pathology. No drains were placed and the supraumbilical incision as well as all trocar sites were closed by by 4-0 Monocryl to approximate the skin edges of the supraumbilical incision, dressing was applied in the form of surgical glue and the patient patient got extubated and was taken to recovery area in a stable condition. Count of sponges, needles and instruments were completed at the end of the procedure I was present for the whole entire procedure.
--- NOTE | 2020-02-13 17:17 | SUR.PHASEI ---
1745 PT UP AND WALKED TO BED PT ALERT TALKATIVE , NOW C/O PAIN TO ABD HANDOFF AT BEDSIDE, PT GIVEN [employer] NURSE TO GET PT PAIN MED.
[2020-02-13] MEDS: HYDROcodone-acetaminophen 5-325 mg Tablet 1 TAB PO ×2 (17:18→23:49)
[2020-02-14] VITALS: BP 127/73; PULSE 84; RESP 20; TEMP 36.8; O2SAT 95
--- NOTE | 2020-02-14 02:16 | PC.NURSE ---
02/14/20 0217 Lab documentation coordinator Laura, reported to this nurse that this pt was refusing lab draws. This nurse went to the pt and educated pt that post op labs were important and declining lab work may delay discharge. PT is AAOx3 and stated back to nurse that he is aware his decision may delay discharge but wished to decline anyways.
[2020-02-14] MEDS: lactated ringers 1,000 ML 125 ML IV (02:59)
[2020-02-14 03:15] VITALS: RESP 14
[2020-02-14] MEDS: morphine 4 mg/mL SDV 1 mL IVP (03:15)
[2020-02-14 03:54] LABS: Basophils % 0.2 %; Hematocrit 42.3 % (42.0-52.0); Hemoglobin 14.1 g/dL (11.7-16.6); Lymphocytes % 15.5 %; Mean Corpuscular HGB Conc 33.3 g/dL (30.0-36.0); Mean Corpuscular Hemoglobin 31.6 pg (28.0-34.0); Mean Corpuscular Volume 94.8 fL (80-94); Mean Platelet Volume 9.7 fL (7.4-10.4); Monocytes # 1.2 10^3/uL (0.2-0.9); Monocytes % 8.9 %; Neutrophils # 9.8 10^3/uL (1.8-7.7); Nucleated Red Blood Cells % 0 %; Platelet Count 260 10^3/cmm (130-400); Red Blood Count 4.46 10^6/uL (4.1-5.3); Red Cell Distribution Width 12.4 % (12.1-15.1)
[2020-02-14 04:00] VITALS: BP 135/74; PULSE 60; RESP 18; TEMP 36.9; O2SAT 95
[2020-02-14 04:20] LABS: Alanine Aminotransferase 26 U/L (0-41); Albumin Level 4.1 g/dL (3.5-5.2); Alkaline Phosphatase 86 IU/L (40-130); Anion Gap 15.9 (5-19); Aspartate Amino Transferase 27 U/L (0-40); Blood Urea Nitrogen 7 mg/dL (6-20); Calcium 9.2 mg/dL (8.5-10.5); Carbon Dioxide 24 mmol/L (22-29); Chloride 102 mmol/L (98-107); Globulin 2.2 g/dL (1.3-4.6); Glomerular Filtration Rate 152.4 mL/min (90-130); Glucose 142 mg/dL (65-115); Osmolality Calculated 284 mOsm/kg (285-295); Potassium 3.9 mmol/L (3.5-5.1); Sodium 138 mmol/L (136-145); Total Bilirubin 0.5 mg/dL (0.15-1.2); Total Protein 6.3 g/dL (6.6-8.7)
--- NOTE | 2020-02-14 07:15 | PM.SDS ---
Short Stay Summary Providers Date of Admit/Discharge: 02/14/20 Attending Provider: Ben Benavidez MD Primary Care Provider: KIRA Solano Chief Complaint: abd pain HPI History of Present Illness Rell Milian is a 34 year old male presents to the emergency department with worsening pain and was found to have acute calculus cholecystitis. Patient was admitted on my service for observation status and undergone uneventful laparoscopic cholecystectomy. She overall did well and will plan to discharge home today, blood work overall is appropriate except for some leukocytosis yet the patient does not have any fevers nausea or vomiting. Review of Systems General: Reports: 10 or more systems reviewed and unremarkable except in HPI and below Home Meds/Allergies Home Medications and Allergies Allergies Allergy/AdvReac Type Severity Reaction Status Date / Time No Known Allergies Allergy Verified 02/14/20 07:16 PFSH Acute PFSH: Social History Smoking and tobacco status: current every day smoker Vitals/I&O/Wt Last Vital Signs Temp 98.4 F 02/14/20 04:00 Pulse 60 02/14/20 04:00 Resp 18 02/14/20 04:00 BP 135/74 02/14/20 04:00 Pulse Ox 95 02/14/20 04:00 02/13/20 02/14/20 02/14/20 22:59 06:59 14:59 Intake Total 1240 / 1290 600 / 1890 Output Total 25 / 25 1300 / 1325 Balance 1215 / 1265 -700 / 565 Weight last 48 hrs Weight 140 lb Physical Exam Narrative: EXAM NARRATIVE: Patient is conscious alert oriented X3 BMI 21 Head and neck examination PERRLA no masses no cervical lymphadenopathy no jaundice Cardiac examination audible S1-S2 no murmurs no gallops no arrhythmias Chest is clear bilateral,abscence of Rhonchi or wheezes,no surgical emphysema Abdomen nontender step mildly at the incision sites nondistended soft no organomegaly guarding or rigidity/no signs of peritonitis Incisions are clean dry and intact Extremities no cyanosis no clubbing no edema Hospital Course Discharge Summary: 34 years old gentleman undergone uneventful laparoscopic cholecystectomy for acute calculus cholecystitis, patient's hospital course was appropriate continue to have stable vital signs and tolerating well p.o. intake with good urine output, will plan to discharge home today. SSS Data Data Completed and Pending: Completed Studies During Hospitalization Category Date Time Status US gall bladder 7 [id number] Urgent Ultrasound 02/12/20 22:18 Completed Pending at discharge Category Date Time Status ES surgery / GI i mages Routine Exams 02/13/20 14:43 Taken Pathology: Surgic al [PTH] Routine Pth 02/13/20 16:08 Ordered Diagnoses at Discharge Discharge Diagnosis (1) Acute cholecystitis: Status: Acute Problem details: Plan to discharge home today on oral antibiotics and p.o. pain medication Discharge Plan Discharge Patient Disposition: Home, Self-Care Condition: Stable Prescriptions: New Cherry Log 5-325 mg tablet 1 tab PO Q6H PRN (Reason: pain) Qty: 28 RF: 0 Augmentin 875-125 mg tablet 1 tab PO BID Qty: 10 RF: 0 Discharge Orders: Discharge Order (Routine); Ordered 02/14/20 Ordered By: Ben Benavidez Referrals: Ben Benavidez MD [Physician] - (Return to surgery office in 10 days) Kusum Palafox, CANAL EQUIPMENT MECHANIC-C [Primary Care Provider] - Discharge Diet: Advance as tolerated Activity Restrictions/Additional Instructions: 1. Patient can shower after 48 hours from surgery 2. Remove Dermabond 7 to 10 days after surgery, if there is a secondary dressing can take down after 48 hours. 3. Up and walking as tolerated 4. Do lift more than 5 pounds first 2 weeks after surgery and not more than 25 pounds 6 to 8 weeks after surgery. 5. Do not operate heavy machinery or drive while using pain medications. 6.Contact the office or return to the ER for worsening nausea vomiting fevers or chills, or noticing any redness around incision sites or discharge. 7. Avoid constipation Attestations Medical Necessity Statement*: Observation status Time Spent in Patient Care*: less than 30 min Quality Metrics Clinical Quality Measures: During this hospital stay, did patient experience: None Coding Level of Care Code Acute Sheet Heater for Murphyg Fwd Diagnoses Acute cholecystitis K81.0
[2020-02-14] MEDS: piperacillin-tazobactam 3.375 GM in sodium chloride 0.9% (plus) 50 ML IV (07:59)
[2020-02-14 08:00] VITALS: BP 124/76; PULSE 70; RESP 18; TEMP 36.9; O2SAT 95
[2020-02-14] MEDS: HYDROcodone-acetaminophen 5-325 mg Tablet 1 TAB PO (08:00)
[2020-02-14 08:04] VITALS: BP 135/74; PULSE 60; RESP 18; TEMP 36.9; O2SAT 95
--- NOTE | 2020-02-14 10:54 | PC.CHAP ---
Pastoral Care Encounter/Spiritual Assessment Type of Contact [] Declined multimedia specialist visit [] Patient/Family/Request visit [] Outpatient visit [X] Follow-up visit [] Physician referral [] Code/Alert [] Routine visit [] Staff referral [] Actively dying [] Patient sleeping [] Family support [] [] Out of room [] Palliative care [] [] Receiving care in room [] Pre-surgical visit [] Trauma [] Long length of stay [] ICU visit [] Other: Relational/Emotional Strength [] Patient feels connected with others/family/visitors/staff [] Distress [] Loneliness/isolation [] Abandonment Spirituality of Patient [] Person of [place] [] Attends Restoration of their [place] [X] Believes in Prayer [] Reads Bible or Gnosticist materials [] There are Spiritual issues to be addressed Verification Lead Interventions [X] Prayer [] Active listening [X] Non-anxious presence [] Spiritual/emotional support [] Crisis/trauma care [] Spiritual counseling [] Bereavement support [] Provided bereavement packet [] Provided Bible/devotional materials [] Provided toy/stuffed animal, coloring book to patient or family member [] Provided Communion [] Anointing/[place] [] Salvation [] Completed spiritual assessment [] Other: Impact on Illness or Injury [] Angry [] Fearful [] Anxious [] Often cries [] Exhaustion [] Unable to work [] Unable to attend hinduism [] Unable to walk/stand [] Unable to read [] Unable to drive [] Unable to eat/drink [] Unable to sleep [] Unable to be with family [] Patient intubated [] Other: Summary: Pt had been nervous about upcoming surgery when i visited him yesterday. Today, he was preparing to be discharged. [facility] for his coming through a successful surgery and continued healing. Time spent with patient: 5 mins
[2020-02-14 11:25] VITALS: BP 135/74; PULSE 60; RESP 18; TEMP 36.9; O2SAT 95
== END 2020-02-14 11:20 | disposition home or self-care (01) ==
LOC: ER 02-13 00:15 → MEDSURG 02-13 07:35
PROVIDERS: Emergency Medicine; Physician Assistant; Admitting Provider Surgery; PCP Nurse Practitioner; Visit Provider Surgery
PROC: 0FT44ZZ Resection of Gallbladder, Percutaneous Endoscopic Approach (ICD-10-PCS; CPT 47562; principal; 2020-02-13 16:00)
DX: K80.10 Calculus of gallbladder with chronic cholecystitis without obstruction (principal); F17.210 Nicotine dependence, cigarettes, uncomplicated
CPT/HCPCS: 47562; 12345; 36415; 76705; 80053; 81003; 83690; 85025; 85730; 88304; 96365; 96368; 96375; 96376; 99283; 99285; G0378; J0131; J0690; J1100; J2001; J2270; J2405; J2543; J2704; J3010; J3490; J7030; J7799

== ENCOUNTER 2022-06-12 04:30 | Emergency (ER) | payer MEDICARE, MEDICAID, SELFPAY ==
[2022-06-12 04:31] VITALS: BP 142/83; PULSE 72; RESP 16; O2SAT 99; BMI 22.8
--- NOTE | 2022-06-12 04:34 | XRR_ITS ---
PROCEDURE INFORMATION: Exam: XR Left Knee Exam date and time: 06/12/2022 4:35 AM Age: 36 years old Clinical indication: Injury or trauma; Fall; Blunt trauma; Patient HX: Patient fell onto left knee getting out of bed this a. M. C/O pain with difficulty bearing weight. TECHNIQUE: Imaging protocol: Radiologic exam of the Left knee. Views: 3 views. COMPARISON: No relevant prior studies available. FINDINGS: Bones/joints: No acute fracture or dislocation. Soft tissues: There is pretibial soft tissue edema. XR/XR knee LT 3V* [id number] IMPRESSION: 1. No acute fracture or dislocation. 2. There is pretibial soft tissue edema.
--- NOTE | 2022-06-12 04:35 | ED_ITS ---
HPI - Extremity Injury (Lower) General: Chief Complaint: Extremity Injury, Lower Stated Complaint: Knee Pain Time Seen by Provider: 06/12/22 04:31 Source: patient Mode of arrival: ambulatory Limitations: no limitations History of Present Illness: 36-year-old male he states that he had gotten out of bed and standing and twisted and felt a pop in his knee and then fell. He states has not been able to bear weight and has had pain and swelling in the knee this happened roughly 30 minutes ago he denies any other injuries denies any radiation of his pain rates his pain a 4 out of 10 currently it is improved with rest. Denies hitting his head when he fell. Review of Systems Const: Denies: fever(s), chills, body aches or change in appetite Eyes: Denies: blurry vision or eye discomfort ENMT: Denies: throat pain or dental pain Card: Denies: chest pain Resp: Denies: dyspnea GI: Denies: abdominal pain, nausea, vomiting or diarrhea : Denies: dysuria Musc: Reports: extremity pain Skin/Breast: Denies: rash Neuro: Denies: headache(s) Psych: Denies: depression Eben/Lymph: Denies: easy bruising All/Imm: Denies: urticaria PFSH ED PFSH: Medical History (Updated 06/12/22 @ 04:46 by Angel Arizmendi MD) No pertinent past medical history Family History Denies family history of Anesthesia complication Bleeding disorder Social History Smoking and tobacco status: current every day smoker Alcohol intake: never Household members: family Current occupational status: disabled History of recent travel: No Physical Exam Const: COMMON NORMALS: no acute distress, patient oriented x3 and healthy appearing HENMT: COMMON NORMALS: normocephalic and atraumatic HEAD & SCALP: normocephalic and atraumatic Eye: COMMON NORMALS: conjunctivae normal CONJUNCTIVA: Yes conjunctivae normal Neck/C-Spine: COMMON NORMALS: full ROM and supple Chest: COMMONS NORMALS: normal inspection of the chest Resp: COMMON NORMALS: normal respiratory effort Cardio: COMMON NORMALS: regular rate, regular rhythm and No murmurs present (Cardio) RATE: regular rate RHYTHM: regular rhythm GI: INSPECTION: Yes normal to inspection Extremity: NARRATIVE EXTREMITY EXAM: Swelling noted over left knee with some tenderness to touch no warmth to touch distal pulses intact Neuro: COMMON NORMALS: patient oriented x3, moves all extremities and no focal motor deficits Psych: COMMON NORMALS: mental status grossly normal, Normal thought process present and cooperative THOUGHT PROCESS: Normal thought process present Skin: COMMON NORMALS: no rashes or lesions noted and no wounds GENERAL SKIN EXAM: no rashes or lesions noted Course Vital Signs: Vital signs: Vital Signs Pulse Rate 84 06/12/22 04:42 Respiratory Rate 18 06/12/22 04:42 Blood Pressure 142/83 06/12/22 04:42 Pulse Oximetry 98 06/12/22 04:42 Oxygen Delivery Me thod 06/12/22 04:31 MDM - Extremity Injury (Lower) Medical Decision Making Patient presents with a knee sprain he has no signs of fracture patient placed in a knee immobilizer and given crutches he is to follow-up orthopedics he is to be nonweightbearing. Discharge Plan Discharge Patient Disposition: Home Clinical Impression: Left knee sprain Qualifiers: Encounter type: initial encounter Involved ligament of knee: unspecified ligament Qualified Code(s): S83.92XA - Sprain of unspecified site of left knee, initial encounter Condition: Stable Prescriptions: New Naprosyn 500 mg tablet 500 mg PO BID PRN (Reason: pain) Qty: 20 0RF No Action Hudson 5-325 mg tablet 1 tab PO Q6H PRN (Reason: pain) Qty: 28 0RF Augmentin 875-125 mg tablet 1 tab PO BID Qty: 10 0RF Discharge Orders: Discharge ED (Routine); Ordered 06/12/22 Ordered By: Angel Arizmendi Referrals: Kusum Palafox, COMMUNITY HEALTH COORDINATOR-C [Primary Care Provider] - Simone Pillai DO [Physician] - 1-3 days Discharge Diet: Advance as tolerated Discharge Activity: Resume usual activity Patient Instructions: Knee Sprain (ED) Coding Level of Care Code ED Supervisor Cigarette Making Department for [place]isa Fwd Exam Comprehensive
[2022-06-12] MEDS: HYDROcodone-acetaminophen 5-325 mg Tablet 1 TAB PO (04:41)
[2022-06-12 04:42] VITALS: BP 142/83; PULSE 84; RESP 18; O2SAT 98
--- NOTE | 2022-06-12 15:22 | DCPLANNER ---
Addendum entered by Katie Alonso 08/06/22 16:00: Patient had a follow up appointment scheduled with ortho - patient did attend appointment Addendum entered by Katie Alonso 06/13/22 10:30: Patient has a follow up appointment scheduled for Sunday, June 19, 2022 at 11:[address] Pillai at ortho. Clinic will call patient with appointment information. Original Note: payable manager had message to schedule a follow up appointment for patient with ortho. payable manager sent patients information to the front office staff at ortho. Patients information will be printed and reviewed. Clinic will call patient with appointment information.
== END 2022-06-12 05:08 | disposition home or self-care (01) ==
PROVIDERS: Emergency Provider Emergency Medicine; PCP Nurse Practitioner
DX: S83.92XA Sprain of unspecified site of left knee, initial encounter (principal); F17.210 Nicotine dependence, cigarettes, uncomplicated; X50.1XXA Overexertion from prolonged static or awkward postures, initial encounter
CPT/HCPCS: 29530; 73562; 99283; E0114

== ENCOUNTER → 2022-06-19 10:01 | Outpatient (BNVA) | payer MEDICARE, MEDICAID, SELFPAY | PROVIDERS: PCP Nurse Practitioner; Visit Provider Student in an Organized Health Care Education/Training Program | DX: S80.02XA Contusion of left knee, initial encounter (principal); W01.0XXA Fall on same level from slipping, tripping and stumbling without subsequent striking against object, initial encounter | CPT/HCPCS: 99203 ==

== ENCOUNTER → 2023-10-30 11:44 | Outpatient (BNVA) | payer MEDICARE, MEDICAID, SELFPAY | PROVIDERS: PCP Nurse Practitioner; Visit Provider Nurse Practitioner Family | DX: K04.7 Periapical abscess without sinus (principal) | CPT/HCPCS: 80053; 85025 ==

== ENCOUNTER → 2024-10-05 14:32 | Outpatient (BNVA) | payer OTHER, MEDICAID, SELFPAY | PROVIDERS: PCP Nurse Practitioner | DX: R50.9 Fever, unspecified (principal) | CPT/HCPCS: 87400 ==